=== PATIENT | female | born 1955 | race Caucasian/White ===

== ENCOUNTER 2018-04-11 10:10 | Outpatient (CLI) | payer OTHER | END 2018-04-11 10:11 | disposition home or self-care (01) | LOC: BICMAMMO 10:10 | PROVIDERS: ATTEND Family Medicine | DX: M81.0 Age-related osteoporosis without current pathological fracture (principal); R93.8 Abnormal findings on diagnostic imaging of other specified body structures; J43.9 Emphysema, unspecified; M41.9 Scoliosis, unspecified | CPT/HCPCS: 71046; 77080 ==

== ENCOUNTER 2019-05-21 09:59 | Day surgery (SDC) | payer OTHER ==
[2019-05-18 09:56] VITALS: BMI 23.0
[2019-05-21 10:43] LABS: #Basophils 0.1 thou/uL (0.0-0.2); #Eosinphils 0.1 thou/uL (0.0-0.7); #Lymphocytes 3.4 thou/uL (1.20-3.40); #Monocytes 0.5 thou/uL (0.11-0.59); #Neutrophils 3.8 thou/uL (1.40-6.50); %Eosinophils 1.4 % (0.0-10.0); %Lymphocytes 43.4 % (21.0-51.0); %Monocytes 5.9 % (0.0-10.0); %Neutrophils 48.3 % (42.0-75.0); Hemoglobin 13.5 g/dL (12.0-16.0); Mean Corpuscular HGB CONC 33.2 g/dL (32.0-36.0); Mean Corpuscular Hemoglobin 30.8 pg (27.0-31.0); Mean Corpuscular Volume 92.8 fL (78.0-98.0); Mean Platelet Volume 8.1 fL (7.4-10.4); Platelet Count 173 thou/uL (130-400); RBC Distribution Width 11.6 % (11.5-14.5); Red Blood Cell (RBC) Count 4.37 mill/uL (4.20-5.40); White Blood Cell (WBC) Count 7.8 thou/uL (4.8-10.8)
[2019-05-21 10:51] LABS: INR-International Normal Ratio 0.9; PTT 39.9 SEC (22.9-36.1); Prothrombin Time 12.3 SEC (12.0-14.7)
[2019-05-21] MEDS ORDERED: ceFAZolin Sodium (SDC) 2 GM/100 ML BAG ONE (10:53)
[2019-05-21 11:05] LABS: Anion Gap 10 mmol/L (10-20); BUN (Urea Nitrogen) 14 mg/dL (9.8-20.1); Calc. Creatinine Clearance 56 mL/min (70-130); Calcium 9.4 mg/dL (7.8-10.44); Carbon Dioxide 25 mmol/L (23-31); Chloride 108 mmol/L (98-107); Estimated GFR-MDRD 60; Glucose 85 mg/dL (80-115); Potassium 4.3 mmol/L (3.5-5.1); Sodium 139 mmol/L (136-145)
[2019-05-21] MEDS ORDERED: Fentanyl 100 MCG/2 ML VIAL ONE (12:16)
[2019-05-21] MEDS ORDERED: Midazolam HCl 2 mg/2 ml Vial ONE (12:16)
[2019-05-21] MEDS ORDERED: Iothalamate Meglumine 60% 50 ML VIAL FS ONE (12:38)
--- NOTE | 2019-05-21 13:14 | RAD ---
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 No evidence for hydronephrosis or filling defect. Opacification of right ureter and renal collecting system demonstrates no evidence for hydronephrosis or filling defect. The urinary bladder appears giovani ssly unremarkable. Lumbar spinal curvature and degenerative change are seen. IMPRESSION: As above.
--- NOTE | 2019-05-21 16:26 | OP ---
DATE OF PROCEDURE: 05/21/2019 PREOPERATIVE DIAGNOSES: Microscopic hematuria and recent right flank pain. POSTOPERATIVE DIAGNOSES: Microscopic hematuria and recent right flank pain. PROCEDURES PERFORMED: Cystoscopy and bilateral retrogrades. ANESTHETIC: General. ESTIMATED BLOOD LOSS: Minimal. FINDINGS: There is no evidence of urethral mass, diverticulum, or stenosis. The bladder was free of tumor, foreign bodies, or stones. There were two left ureteral orifices and one right ureteral orifice, efflux on both sides were clear. There was a tiny little probable calcification, it was just noted in the floor of the bladder. It was well less than a millimeter in size and that was free-floating and rinsed out. It may have been perhaps a small ureteral stone that she may have passed in the last day or so. 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 There is no hydronephrosis or ureteral filling defects. DESCRIPTION OF PROCEDURE: Obtained written and verbal consent from the patient, after receiving IV antibiotics and after adding retrograde studies to her procedure as she stated that she has been having some right flank pain almost feeling like she was trying to pass the stone over the last few days. Then, she was taken to the operating suite. She was placed in a supine position on the treatment table. PlexiPulses were placed on her lower extremities and turned on. She was given a general anesthetic and oral obturator intubation. She was placed in the dorsal lithotomy position, sterilely prepped and draped. Cystoscopy was performed with a 22-Stateless sheath. This was well lubricated and passed under direct vision through the female urethra into the urinary bladder with an aid of a 30-degree lens and video camera and monitor. The bladder was filled and emptied number of times and was examined at both the 30 and 70-degree lens. A cone-tipped catheter 5-Stateless was flushed with contrast and advanced in the right ureteral orifice and contrast was slowly injected in a retrograde manner saving some images. The voltmeter operator film was initially done also. The left side was then done by first injecting the more medial of the orifices and then, the more lateral of the orifices as she had a duplication on this side. Once drainage films were completed on both sides, the instruments were removed and she was taken out of dorsal lithotomy position and awakened and extubated and taken by stretcher to the recovery room. Job ID: [id number]
== END 2019-05-21 14:35 | disposition home or self-care (01) ==
LOC: SDC 09:59
PROVIDERS: ATTEND Urology
PROC: 0TJB8ZZ Inspection of Bladder, Via Natural or Artificial Opening Endoscopic (ICD-10-PCS; principal; 2019-05-21)
PROC: BT14ZZZ Fluoroscopy of Kidneys, Ureters and Bladder (ICD-10-PCS; principal; 2019-05-21)
DX: R31.29 Other microscopic hematuria (principal); R10.9 Unspecified abdominal pain; M81.0 Age-related osteoporosis without current pathological fracture; M19.90 Unspecified osteoarthritis, unspecified site; E07.9 Disorder of thyroid, unspecified; Z79.899 Other long term (current) drug therapy
CPT/HCPCS: 36415; 74420; 80048; 85025; 85610; 85730; J0690; J2250; J3010

== ENCOUNTER 2019-08-01 10:44 | Outpatient (CLI) | payer OTHER ==
--- NOTE | 2019-08-01 12:11 | RAD ---
2 VIEW CHEST: Date: 08/01/19 HISTORY: Dyspnea. FINDINGS: Lung jovel appear clear. No infiltrate. Heart and mediastinum appear normal. Vascular markings inocencio l. IMPRESSION: No acute process. POS: [facility]
== END 2019-08-01 10:45 | disposition home or self-care (01) ==
LOC: RAD 10:44
PROVIDERS: ATTEND Internal Medicine Pulmonary Disease
DX: R06.00 Dyspnea, unspecified (principal)
CPT/HCPCS: 71046

== ENCOUNTER 2021-04-06 11:48 | Outpatient (CLI) | payer MEDICARE, OTHER | END 2021-04-06 11:49 | disposition home or self-care (01) | LOC: BICMAMMO 11:48 | PROVIDERS: ATTEND Nurse Practitioner Family | DX: Z12.31 Encounter for screening mammogram for malignant neoplasm of breast (principal); M85.80 Other specified disorders of bone density and structure, unspecified site; M81.0 Age-related osteoporosis without current pathological fracture; Z91.89 Other specified personal risk factors, not elsewhere classified | CPT/HCPCS: 77063; 77067; 77080 ==

== ENCOUNTER 2021-04-15 10:41 | Outpatient (CLI) | payer MEDICARE, OTHER | END 2021-04-15 10:42 | disposition home or self-care (01) | LOC: BICCT 10:41 | PROVIDERS: ATTEND Nurse Practitioner Family | DX: Z12.2 Encounter for screening for malignant neoplasm of respiratory organs (principal); F17.210 Nicotine dependence, cigarettes, uncomplicated; D35.01 Benign neoplasm of right adrenal gland; N13.30 Unspecified hydronephrosis; N20.0 Calculus of kidney; R91.1 Solitary pulmonary nodule | CPT/HCPCS: 71271 ==

== ENCOUNTER 2021-10-08 12:27 | Outpatient (CLI) | payer MEDICARE, OTHER | END 2021-10-08 12:28 | disposition home or self-care (01) | LOC: SCSMRI 12:27 | PROVIDERS: ATTEND Specialist | DX: M51.16 Intervertebral disc disorders with radiculopathy, lumbar region (principal); M47.26 Other spondylosis with radiculopathy, lumbar region | CPT/HCPCS: 72148 ==

== ENCOUNTER 2021-11-17 09:57 | Outpatient (CLI) | payer MEDICARE, OTHER | END 2021-11-17 09:58 | disposition home or self-care (01) | LOC: MRI 09:57 | PROVIDERS: ATTEND Specialist | DX: M47.22 Other spondylosis with radiculopathy, cervical region (principal); M50.123 Cervical disc disorder at C6-C7 level with radiculopathy; M48.02 Spinal stenosis, cervical region | CPT/HCPCS: 72141 ==

== ENCOUNTER 2021-11-26 09:22 | Outpatient (CLI) | payer MEDICARE, OTHER | END 2021-11-26 09:23 | disposition home or self-care (01) | LOC: ULT 09:22 | PROVIDERS: ATTEND Urology | DX: N20.1 Calculus of ureter (principal) | CPT/HCPCS: 76770 ==

== ENCOUNTER 2022-05-20 09:58 | Outpatient (CLI) | payer MEDICARE, OTHER ==
[2022-05-20 12:38] LABS: Mean Corpuscular HGB CONC 33.5 g/dL (32.0-36.0); Mean Corpuscular Hemoglobin 31.5 pg (27.0-33.0); Mean Corpuscular Volume 94.1 fl (81.6-98.3); Mean Platelet Volume 11.2 fl (7.4-10.4); Platelet Count 179 10x3/uL (150-450); RBC Distribution Width 12.5 % (11.5-14.5); Red Blood Cell (RBC) Count 4.44 10x6/uL (3.90-5.03); White Blood Cell (WBC) Count 9.4 10x3/uL (3.5-10.5)
[2022-05-20 12:58] LABS: INR-International Normal Ratio 0.9; PTT 29.8 sec (22.0-33.0); Prothrombin Time 10.1 sec (9.5-12.1)
[2022-05-20 13:01] LABS: Anion Gap 11 mmol/L (10-20); BUN (Urea Nitrogen) 12 mg/dL (9.8-20.1); Calc. Creatinine Clearance 0 mL/min (70-130); Calcium 9.7 mg/dL (7.8-10.44); Carbon Dioxide 28 mmol/L (23-31); Chloride 107 mmol/L (98-107); Estimated GFR 58; Glucose 76 mg/dL (80-115); Potassium 4.4 mmol/L (3.5-5.1); Sodium 142 mmol/L (136-145)
== END 2022-05-20 09:59 | disposition home or self-care (01) ==
LOC: LABBT 09:58
PROVIDERS: ATTEND Surgery
DX: Z01.812 Encounter for preprocedural laboratory examination (principal); M54.16 Radiculopathy, lumbar region; M41.9 Scoliosis, unspecified; Z20.822 Contact with and (suspected) exposure to COVID-19
CPT/HCPCS: 80048; 85027; 85610; 85730; 87811

== ENCOUNTER 2022-05-25 09:22 | Observation (INO) | payer MEDICARE, OTHER ==
[2022-05-25] MEDS ORDERED: fentaNYL Citrate/PF 100 MCG/2 ML SYRINGE ONE (13:00)
[2022-05-25] MEDS ORDERED: Sodium Chloride 0.9% 100 ML ONE (13:05)
[2022-05-25] MEDS ORDERED: CEFAZOLIN 2 GM VIAL ONE (13:05)
[2022-05-25] MEDS ORDERED: PROPOFOL 200 MG/20 ML VIAL ONE (13:13)
[2022-05-25] MEDS ORDERED: Rocuronium Bromide 10 MG/ML (10ML VIAL) ONE (13:13)
[2022-05-25] MEDS ORDERED: ePHEDrine 50 MG/ML VIAL ONE (13:13)
[2022-05-25] MEDS ORDERED: Lidocaine 1% PF 5 ML VIAL ONE (13:13)
[2022-05-25] MEDS ORDERED: Phenylephrine 10 MG/ML VIAL ONE (13:13)
[2022-05-25] MEDS ORDERED: Ketorolac Tromethamine 30 MG/ML VIAL ONE (13:13)
[2022-05-25] MEDS ORDERED: Dexamethasone 20 MG/5 ML VIAL ONE (13:13)
[2022-05-25] MEDS ORDERED: Glycopyrrolate 0.2 MG/ML 5 ML SYRINGE ONE (13:13)
[2022-05-25] MEDS ORDERED: Ondansetron PF 4 MG/2 ML Vial ONE (13:13)
[2022-05-25] MEDS ORDERED: Neostigmine Methylsulfate 3 MG/3 ML SYRINGE ONE (13:13)
[2022-05-25] MEDS ORDERED: Thrombin 5000 UNITS/5 ML VIAL ONE (14:06)
[2022-05-25] MEDS ORDERED: diphenhydrAMINE 25 MG CAP PO PRN (14:46)
[2022-05-25] MEDS ORDERED: traMADol HCl 50 MG TAB PO PRN (14:46)
[2022-05-25] MEDS ORDERED: Acetaminophen/Codeine 30-300mg Tablet PO PRN (14:46)
[2022-05-25] MEDS ORDERED: Ondansetron PF 4 MG/2 ML Vial IVP PRN (14:46)
[2022-05-25] MEDS ORDERED: Acetaminophen 325 MG TAB PO PRN (14:46)
[2022-05-25] MEDS ORDERED: Morphine 2 MG/ML VIAL SLOW IVP PRN (14:46)
[2022-05-25] MEDS ORDERED: tiZANidine HCl 4 MG TAB PO PRN (14:48)
[2022-05-25] MEDS ORDERED: Chloraseptic Spray 180 ml Bottle PO PRN (14:48)
[2022-05-25] MEDS ORDERED: Cepastat Lozenges 1 LOZ PO PRN (14:48)
[2022-05-25] MEDS ORDERED: hydrALAZINE 20 MG/ML VIAL SLOW IVP PRN (14:49)
[2022-05-25] MEDS ORDERED: HYDROmorphone 0.5 MG/0.5 ML SYRINGE ONE ×2 (14:56→15:13)
[2022-05-25] MEDS ORDERED: Promethazine HCl 25 MG/ML VIAL IVPB PRN (14:57)
[2022-05-25] MEDS ORDERED: HYDROmorphone 2 MG/ML VIAL SLOW IVP PRN (14:57)
[2022-05-25] MEDS ORDERED: Meperidine HCl/PF 25 MG/ML VIAL SLOW IVP PRN (14:57)
[2022-05-25] MEDS ORDERED: Promethazine HCl 25 MG/ML VIAL IM PRN (14:57)
[2022-05-25] MEDS ORDERED: Ondansetron HCl/PF 4 MG/2 ML Vial IVP PRN (14:57)
[2022-05-25] MEDS ORDERED: Fentanyl 100 MCG/2 ML VIAL ONE (15:20)
[2022-05-25] MEDS: Sodium Chloride 0.9% 1,000 ML IV SCH (16:25)
[2022-05-25 16:27] VITALS: BMI 24.6
[2022-05-25] MEDS: HYDROcodone/Acetaminophen 7.5/325 mg Tablet PO PRN (16:49)
[2022-05-25] MEDS: CEFAZOLIN 2 GM in Sodium Chloride 0.9% 100 ML IVPB SCH (20:41)
[2022-05-25] MEDS ORDERED: Rosuvastatin 10 MG TAB PO SCH (21:00)
[2022-05-25] MEDS ORDERED: Gabapentin 300 MG CAP PO SCH (21:00)
[2022-05-26] MEDS: Sodium Chloride 0.9% 1,000 ML IV SCH (04:14)
[2022-05-26] MEDS: HYDROcodone/Acetaminophen 7.5/325 mg Tablet PO PRN (04:21)
[2022-05-26] MEDS: CEFAZOLIN 2 GM in Sodium Chloride 0.9% 100 ML IVPB SCH (05:31)
[2022-05-26] MEDS ORDERED: Levothyroxine Sodium 50 MCG TAB PO SCH (06:00)
[2022-05-26 08:30] VITALS: BP 119/57; TEMP 97.1
[2022-05-26] MEDS ORDERED: Multivit, Therapeutic 1 TAB PO SCH (09:00)
[2022-05-26] MEDS ORDERED: Bupropion 150 MG XL TAB PO SCH (09:00)
[2022-05-26] MEDS ORDERED: Cholecalciferol 1,000 UNITS (25 MCG) TAB PO SCH (09:00)
== END 2022-05-26 14:07 | disposition home or self-care (01) ==
LOC: SDC 09:22 → MSONC 10:00
PROVIDERS: ADMIT Surgery; ATTEND Surgery
PROC: 01NB0ZZ Release Lumbar Nerve, Open Approach (ICD-10-PCS; principal; 2022-05-25)
DX: M54.16 Radiculopathy, lumbar region (principal); M41.9 Scoliosis, unspecified; M81.0 Age-related osteoporosis without current pathological fracture; M48.061 Spinal stenosis, lumbar region without neurogenic claudication; M54.12 Radiculopathy, cervical region; M48.02 Spinal stenosis, cervical region; Z79.890 Hormone replacement therapy; Z79.899 Other long term (current) drug therapy
CPT/HCPCS: 63030; 63035; 76000; C1776; J0690; J1100; J1170; J1885; J2370; J2405; J2704; J3010; J3370; J3490; J7050

== ENCOUNTER 2024-10-04 09:29 | Outpatient (CLI) | payer MEDICARE, OTHER | END 2024-10-04 09:30 | disposition home or self-care (01) | LOC: BICMAMMO 09:29 | PROVIDERS: ATTEND Nurse Practitioner Family | DX: Z12.2 Encounter for screening for malignant neoplasm of respiratory organs (principal); F17.210 Nicotine dependence, cigarettes, uncomplicated; M81.0 Age-related osteoporosis without current pathological fracture; M85.88 Other specified disorders of bone density and structure, other site; Z78.0 Asymptomatic menopausal state | CPT/HCPCS: 71271; 77080 ==